=== PATIENT | female | born 1995 | race Caucasian/White ===

== ENCOUNTER 2021-10-31 17:40 | Inpatient (IN) | payer OTHER ==
[~2021-10-31] VITALS: Ht 160 cm; Wt 106.1 kg
[2021-10-31] MEDS ORDERED: PRENATAL MULTI1 EAC3 PO (21:41)
[2021-10-31] MEDS ORDERED: ADULT LOW DOSE81 MG PO (21:44)
--- NOTE | 2021-10-31 22:56 | NUR ---
BILLYID 19 KENNA DONE TO BOTH NARES AND SENT TO IN HOUSE LAB.
--- NOTE | 2021-11-01 07:46 | PR ---
[facility] [address] [place], [place] [address] Signed Progress Notes IP Datetime Report Generated by CPN: 11/01/2021 07:46 PROGRESS NOTES: [id number] Impression: Reassuring Heart Rate Procedures: Artificial ROM Plan: Continue Present Management VITAL SIGNS: [id number] Vital Signs: Reviewed VS Notable Details: elevated non-severe BP EXAM: [id number] Dilatation: 4.0 Effacement: 85 Station: -2 Contractions: q2-6 min MEMBRANES: [id number] Comments: 25 yo @ 39 1/7 weeks gestation -MIOL for cHTN -PreE labs negative at this time, PC ratio 0.27 -s/p cytotec x 1 Recheck in 2h, if not strong contraction pattern at that time anticipate low-dose pitocin FETUS A: [id number] FHR Baseline: 135 Variability: Moderate 6-25bpm Accelerations: 15X15 Decelerations: None FHR Category: Category I Presentation: Vertex Comments on Fetus A: no evidence of acidemia FETUS B: [id number] Signing Physician: Shahla Michelle DO Copies: ~ *Electronically Signed* 11/01/21 0746 SHAHLA MICHELLE DO PATIENT NAME: CHARITO HOUSTON PROGRESS NOTE DATE OF : 95 PHYSICIAN: SHAHLA MICHELLE DO RPT #: [id number] REPORT IS CONFIDENTIAL AND NOT TO BE RELEASED WITHOUT AUTHORIZATION
--- NOTE | 2021-11-01 12:33 | PR ---
[facility] [address] [place], [place] [address] Signed Progress Notes IP Datetime Report Generated by PINA: 11/01/2021 12:33 PROGRESS NOTES: [id number] Impression: Normal Progression of Labor; Reassuring Heart Rate Procedures: Artificial ROM Plan: Continue Present Management; Anticipate Vaginal Delivery VITAL SIGNS: [id number] Vital Signs: Reviewed VS Notable Details: elevated non-severe BP EXAM: [id number] Dilatation: 8.0 Effacement: 90 Station: -1 Contractions: q2-6 min MEMBRANES: [id number] Comments: 25 yo @ 39 1/7 weeks gestation -MIOL for cHTN -PreE labs negative at this time, PC ratio 0.27 -s/p cytotec x 1 Recheck in 2h, if not strong contraction pattern at that time anticipate low-dose pitocin FETUS A: [id number] FHR Baseline: 135 Variability: Moderate 6-25bpm Accelerations: 15X15 Decelerations: None FHR Category: Category I Presentation: Vertex Comments on Fetus A: no evidence of acidemia FETUS B: [id number] Signing Physician: Shahla Michelle DO Copies: ~ *Electronically Signed* 11/01/21 1233 SHAHLA MICHELLE DO PATIENT NAME: CHARITO HOUSTON PROGRESS NOTE DATE OF : 95 PHYSICIAN: SHAHLA MICHELLE #: [id number] REPORT IS CONFIDENTIAL AND NOT TO BE RELEASED WITHOUT AUTHORIZATION
--- NOTE | 2021-11-01 16:27 | PR ---
[facility] [address] [facility] [place] [address] Signed Progress Notes IP Datetime Report Generated by CPN: 11/01/2021 16:27 PROGRESS NOTES: [id number] Impression: Normal Progression of Labor; Reassuring Heart Rate Procedures: Artificial ROM Plan: Continue Present Management; Anticipate Vaginal Delivery VITAL SIGNS: [id number] Vital Signs: Reviewed VS Notable Details: elevated non-severe BP EXAM: [id number] Dilatation: 10.0 Effacement: 100 Station: 0 Contractions: q2-6 min MEMBRANES: [id number] Comments: Progressed to complete. Pushing well with contractions. Continue to push. Anticipate FETUS A: [id number] FHR Baseline: 135 Variability: Moderate 6-25bpm Accelerations: 15X15 Decelerations: None FHR Category: Category I Presentation: Vertex Comments on Fetus A: no evidence of acidemia FETUS B: [id number] Signing Physician: Shahla Michelle DO Copies: ~ *Electronically Signed* 11/01/21 1627 SHAHLA MICHELLE DO PATIENT NAME: CHARTIO HOUSTON PROGRESS NOTE DATE OF : 95 PHYSICIAN: SHAHLA MICHELLE DO [facility] #: [id number] REPORT IS CONFIDENTIAL AND NOT TO BE RELEASED WITHOUT AUTHORIZATION
--- NOTE | 2021-11-02 13:00 | PR ---
[facility] [address] [facility] [place], [place] [address] Signed PP Progress Notes Datetime Report Generated by CPN: 11/02/2021 13:00 SUBJECTIVE: [id number] Pain: Within Normal Limits Nausea/Vomiting: Denies Vital Signs: [id number] Vital Signs: Reviewed; Within Normal Limits Notable Details: BP normal Hgb/Hct = 11.7/35.7 EXAM: Ongoing Abdomen/Uterus: Normal Lochia: Normal Extremities: Normal IMPRESSION/PLAN/PROCEDURES: [id number] Impression: Normal Progression Plan: Continue Present Management Procedures: None Progress Notes: Doing well, without complaint. Discussed f/u for BP check 2-3 days after discharge, since admitted for HTN. Signing Physician: Angela Vazquez MD Copies: ~ *Electronically Signed* 11/02/21 1300 ANGELA VAZQUEZ MD PATIENT NAME: CHARITO HOUSTON PROGRESS NOTE DATE OF : 95 PHYSICIAN: ANGELA VAZQUEZ MD RPT #: [id number] REPORT IS CONFIDENTIAL AND NOT TO BE RELEASED WITHOUT AUTHORIZATION
--- NOTE | 2021-11-03 11:36 | PR ---
[facility] [address] [place] [address] Signed PP Progress Notes Datetime Report Generated by CPN: 11/03/2021 11:36 SUBJECTIVE: [id number] Pain: Within Normal Limits Nausea/Vomiting: Denies Vital Signs: [id number] Vital Signs: Reviewed; Within Normal Limits Notable Details: BP normal Hgb/Hct = 11.7/35.7 EXAM: Ongoing Abdomen/Uterus: Normal Lochia: Normal Extremities: Normal IMPRESSION/PLAN/PROCEDURES: [id number] Impression: Normal Progression Plan: Discharge Procedures: None Progress Notes: Doing well, without complaint, ready to go home. Signing Physician: Angela Vazquez MD Copies: ~ *Electronically Signed* 11/03/21 1136 ANGELA VAZQUZE MD PATIENT NAME: CHARITO HOUSTON PROGRESS NOTE DATE OF : 95 PHYSICIAN: ANGELA VAZQUEZ MD RPT #: [id number] REPORT IS CONFIDENTIAL AND NOT TO BE RELEASED WITHOUT AUTHORIZATION
== END 2021-11-03 14:50 | disposition home or self-care (01) | DRG 807 ==
LOC: FBC 17:40
PROVIDERS: ADMIT Obstetrics & Gynecology; ATTEND Obstetrics & Gynecology
PROC: 10E0XZZ Delivery of Products of Conception, External Approach (ICD-10-PCS; principal; 2021-11-01)
PROC: 10907ZC Drainage of Amniotic Fluid, Therapeutic from Products of Conception, Via Natural or Artificial Opening (ICD-10-PCS; 2021-11-01)
PROC: 3E0R3BZ Introduction of Anesthetic Agent into Spinal Canal, Percutaneous Approach (ICD-10-PCS; 2021-11-01)
PROC: 00HU33Z Insertion of Infusion Device into Spinal Canal, Percutaneous Approach (ICD-10-PCS; 2021-11-01)
PROC: 0HQ9XZZ Repair Perineum Skin, External Approach (ICD-10-PCS; 2021-11-01)
PROC: 3E0P7VZ Introduction of Hormone into Female Reproductive, Via Natural or Artificial Opening (ICD-10-PCS; 2021-11-01)
DX: O11.4 Pre-existing hypertension with pre-eclampsia, complicating childbirth (principal); Z37.0 Single live birth; O76 Abnormality in fetal heart rate and rhythm complicating labor and delivery; O70.0 First degree perineal laceration during delivery; O99.214 Obesity complicating childbirth; O69.1XX0 Labor and delivery complicated by cord around neck, with compression, not applicable or unspecified; Z3A.39 39 weeks gestation of pregnancy; Z79.899 Other long term (current) drug therapy; Z88.8 Allergy status to other drugs, medicaments and biological substances; Z20.822 Contact with and (suspected) exposure to COVID-19
CPT/HCPCS: 01960; 36415; 80053; 82570; 83615; 84156; 84550; 85027; 86850; 86900; 86901; 87502; A9270; C9803; J2405; J2590; J7121; U0003

== ENCOUNTER 2024-06-20 01:47 | Inpatient (IN) | payer OTHER ==
[~2024-06-20] VITALS: Ht 160 cm; Wt 112.5 kg
[~2024-06-20 01:47] MED LIST: ADULT LOW DOSE81 MG PO; PRENATAL MULTI1 EAC3 PO
[2024-06-20] MEDS ORDERED: LABETALOL HCL 100 MG/20 ML MDV ONE (02:25)
[2024-06-20 02:27] LABS: HEMOGLOBIN 14.4 g/dL (12.0-18.0); MCH 29.3 (27-36); MCHC 33.6 g/dl (30-36); RBC 4.94 M/ul (4.3-5.7); RDW 14.7 (10.5-15.0)
[2024-06-20] MEDS ORDERED: LIDOCAINE 2% VISCOUS 6 ML SYR TOP ONE ×4 (02:30→06:30)
[2024-06-20] MEDS ORDERED: CALCIUM CARBONATE 500 MG CHEW PO PRN ×3 (02:30→06:30)
[2024-06-20] MEDS ORDERED: LABETALOL HCL 100 MG/20 ML MDV IV PRN ×3 (02:30)
[2024-06-20] MEDS ORDERED: MAGNESIUM HYDROXIDE/AL HYDROX 30 ML CUP PO PRN ×2 (02:30→06:30)
[2024-06-20] MEDS ORDERED: hydrALAZINE HCL 20 MG/ML VIAL IV PRN (02:30)
[2024-06-20 02:40] LABS: ALBUMIN 2.7 g/dL (3.4-5.0); ALBUMIN/GLOBULIN RATIO 0.68 (1.1-2.4); ANION GAP 15.9 (7-21); BILIRUBIN, TOTAL 0.4 mg/dL (0.2-1.0); BUN/CREATININE RATIO 22.91 (6.0-28.6); CALCIUM 9.2 mg/dL (8.5-10.1); CREATININE, SERUM 0.48 mg/dL (0.55-1.02); POTASSIUM 3.9 mmol/L (3.5-5.1); PROTEIN, TOTAL 6.7 g/dL (6.4-8.2)
[2024-06-20 02:56] LABS: CREATININE, RANDOM URINE 47.77 mg/dL (NOT ESTABLISHED); PROTEIN/CREATININE RATIO 0.27 mg/mg (0.010-0.107)
[2024-06-20 03:01] LABS: ABO O; RH POSITIVE
[2024-06-20 03:02] LABS: ANTIBODY SCREEN NEGATIVE
[2024-06-20 03:05] LABS: AMPHETAMINES, URINE NEGATIVE (NEGATIVE); BARBITURATES, URINE NEGATIVE (NEGATIVE); BENZODIAZEPINE, URINE NEGATIVE (NEGATIVE); BUPRENORPHINE, URINE NEGATIVE (NEGATIVE); CANNABINOID, URINE NEGATIVE (NEGATIVE); COCAINE, URINE NEGATIVE (NEGATIVE); ECSTASY, URINE NEGATIVE (NEGATIVE); FENTANYL, URINE NEGATIVE (NEGATIVE); METHADONE, URINE NEGATIVE (NEGATIVE); OPIATES, URINE NEGATIVE (NEGATIVE); OXYCODONE, URINE NEGATIVE (NEGATIVE); PHENCYCLIDINE, URINE NEGATIVE (NEGATIVE)
[2024-06-20 03:31] VITALS: BP 135/90
[2024-06-20] MEDS ORDERED: Ropivacaine HCl 20 MG/10 ML AMP ONE (04:00)
[2024-06-20] MEDS ORDERED: LACTATED RINGER'S 1,000 ML IV SCH (04:00)
[2024-06-20] MEDS ORDERED: ROPIVACAINE 0.2% 200 ML BAG ONE (04:00)
[2024-06-20] MEDS ORDERED: LACTATED RINGER'S 1,000 ML IV PRN (04:00)
[2024-06-20] MEDS ORDERED: OXYTOCIN/0.9 % SODIUM CHLORIDE 30 UNITS/500 ML BAG IV SCH (04:00)
[2024-06-20] MEDS ORDERED: TRANEXAMIC ACID IN NACL,ISO-OS 0 ML IV ONE (05:49)
[2024-06-20] MEDS ORDERED: ACETAMINOPHEN 325 MG TAB PO PRN (06:30)
[2024-06-20] MEDS ORDERED: MAGNESIUM HYDROXIDE 30 ML UDC PO PRN (06:30)
[2024-06-20] MEDS ORDERED: HYDROCORTISONE ACETATE 25 MG SUPP PR PRN (06:30)
[2024-06-20] MEDS ORDERED: WITCH HAZEL/GLYCERIN 1 EA PAD TOP PRN (06:30)
[2024-06-20] MEDS ORDERED: OXYTOCIN/0.9 % SODIUM CHLORIDE 500 ML IV SCH (06:30)
[2024-06-20] MEDS ORDERED: BENZOCAINE 60 ML AEROSOL TOP PRN (06:30)
[2024-06-20] MEDS ORDERED: IBUPROFEN 600 MG TAB PO PRN (06:30)
[2024-06-20] MEDS ORDERED: SENNOSIDES/DOCUSATE 1 EA TAB PO SCH (09:00)
== END 2024-06-21 10:57 | disposition home or self-care (01) | DRG 807 ==
LOC: FBCO 01:47 → FBC 02:09
PROVIDERS: Advanced Practice Midwife; ADMIT Obstetrics & Gynecology; ATTEND Obstetrics & Gynecology
PROC: 10E0XZZ Delivery of Products of Conception, External Approach (ICD-10-PCS; principal; 2024-06-20)
PROC: 3E0R3BZ Introduction of Anesthetic Agent into Spinal Canal, Percutaneous Approach (ICD-10-PCS; 2024-06-20)
PROC: 00HU33Z Insertion of Infusion Device into Spinal Canal, Percutaneous Approach (ICD-10-PCS; 2024-06-20)
DX: O48.0 Post-term pregnancy (principal); Z37.0 Single live birth; O76 Abnormality in fetal heart rate and rhythm complicating labor and delivery; O69.81X0 Labor and delivery complicated by cord around neck, without compression, not applicable or unspecified; Z3A.40 40 weeks gestation of pregnancy; Z90.89 Acquired absence of other organs; Z98.890 Other specified postprocedural states; Z88.8 Allergy status to other drugs, medicaments and biological substances; O99.343 Other mental disorders complicating pregnancy, third trimester; F41.9 Anxiety disorder, unspecified; F32.A Depression, unspecified; Z87.442 Personal history of urinary calculi; Z79.899 Other long term (current) drug therapy
CPT/HCPCS: 01960; 36415; 80053; 80307; 82570; 84156; 85027; 86850; 86900; 86901; A9270; J7121